=== PATIENT | female | born 1980 | race African-American/Black ===

== ENCOUNTER 2018-10-28 11:47 | Emergency (ER) | payer MEDICAID ==
[~2018-10-28] VITALS: Ht 167.6 cm; Wt 81.4 kg
[2018-10-28 11:49] VITALS: BP 128/69; TEMP 97.8
[2018-10-28 12:13] LABS: COLLECTION METHOD CLEAN CATCH
[2018-10-28 12:18] LABS: MUCOUS Present /lpf; PH 7 (5-8); SQUAMOUS EPITHELIAL 0-2 /hpf; URINE APPEARANCE Clear; URINE BACTERIA None Seen /hpf; URINE BILIRUBIN Negative (NEGATIVE); URINE BLOOD Negative (NEGATIVE); URINE COLOR Yellow; URINE GLUCOSE Negative (NEGATIVE); URINE KETONE Negative (NEGATIVE); URINE LEUKOCYTE ESTERASE 3+ (NEGATIVE); URINE NITRATE Negative (NEGATIVE); URINE PROTEIN(semi-quant) Negative (NEGATIVE); URINE RBC 0-2 /hpf
[2018-10-28] MEDS ORDERED: DIFLUCAN150 MG PO (13:28)
[2018-10-28 13:40] VITALS: PULSE 62
== END 2018-10-28 13:35 | disposition home or self-care (01) ==
LOC: COL.ER 11:47
PROVIDERS: Emergency Medicine
DX: B37.3 Candidiasis of vulva and vagina (principal); F17.210 Nicotine dependence, cigarettes, uncomplicated